=== PATIENT | female | born 1965 | race Caucasian/White ===

== ENCOUNTER → 2018-05-25 10:45 | Outpatient (CLI) | payer MEDICAID, SELFPAY ==
--- NOTE | 2018-05-25 | IMM_PTH ---
PATIENT: ROYER MARCUM LOC: [facility] U#:[id number] AGE/SX: 60/F ROOM: RE05/25/[address]: Dr. Pino Almanzar MD : 1965 BED: DIS: SPEC #: [id number] RECD: 05/27/18 10:53 STATUS: KATY REQ #: [id number] TAWANDA: 05/25/18 00:[address]: Pino Almanzar DEPT: IMMUNOHISTOCHEMISTRY RECD BY: Coby Steel ENTERED: 05/27/18 10:54 SP TYPE: IMMUNO OTHR DR: Dr. Pino Wilburn MD Tissues: B - Right breast, NOS Procedures: CALPONIN-1 (add) CK5-6 (add) CK8 (add) E-CAD (add) HER2 NINOSKA (add) KI-67 (add) P53 (add) AL (add) P40 (add) ER (initial) PHYSICIAN & INSTITUTION [place] [id number] SPECIMEN INFORMATION: Tissue Source: B ? Right breast tissue, 11 o?clock Clinical Info: Right breast masses Specimen Number: [id number] CPT code: 49969, 45275 x6, 65525 x3 METHODOLOGY: Deparaffinized sections of prefer/formalin-fixed tissue or PAP/DQ stained slides are incubated with monoclonal/polyclonal antibodies/oligonucleotide probes. Localization is made via biotin free immunoperoxidase method. Appropriate controls are performed and reacted as expected. Results on target cell population are indicated in the following table: RESULTS: ANTIBODY / CLONE RESULT Block B P53 (DO-7) positive, dim 2% Ki-67 (30-9) positive, rare CK8 (86lerfB65) positive CK5-6 (D5 & 1684) positive Calponin-1 (LT994V) negative P40 (BC28) negative E-Cad (ECH-6) positive ER (clone 6F11) 45%, moderate AL (clone 16/1E2) 0-25%, moderate Her-2Neu (clone CB11) 0-1+ The prognostic test for HER2 is performed on formalin-fixed paraffin embedded tissue. A 3+ (positive) staining pattern is defined as intense, homogeneous, complete, circumferential membranous staining in >10% of contiguous tumor cells. A similar weak (2+) staining pattern is interpreted as equivocal. EMILY follow-up testing is recommended for all equivocal cases. Positivity/negativity for ER/AL is reported if > or < 1% of the tumor cells are immuno- reactive, respectively. The ASCO/CAP criteria is used for scoring. Reference: Journal of Clinical Oncology, 2013; 31:2790-9591 & 2010; 16:7482-7039. Duration of fixation: 7.5 Hrs; Sample Adequate: Yes. These assays have not been validated on decalcified tissues. Results should be interpreted with caution given the likelihood of false negativity on decalcified specimens. These tests were developed and their performance characteristics determined by [facility]. They may not have been cleared or approved by the U.S. Food and Drug Administration. The FDA has determined that such clearance or approval is not necessary. INTERPRETATION: B. Right breast 11 o?clock, biopsy: Fibroadenomatous change. Focal intraductal hyperplasia without atypia. Extensive elastosis. AM:natalee 05/31/18 AM:natalee 06/23/18 Case has been reviewed in consultation with Dr. Montoya who concurs with the above diagnosis. IDC:SJ
--- NOTE | 2018-05-25 | IMM_PTH ---
PATIENT: ROYER MARCUM LOC: [facility] U#:[id number] AGE/SX: 60/F ROOM: RE05/25/[address]: Dr. Pino Almanzar MD : 1965 BED: DIS: SPEC #: [id number] RECD: 05/27/18 10:53 STATUS: KATY REQ #: [id number] TAWANDA: 05/25/18 00:[address]: Pino lAmanzar DEPT: IMMUNOHISTOCHEMISTRY RECD BY: Coby Steel ENTERED: 05/27/18 10:54 SP TYPE: IMMUNO OTHR DR: Dr. Pino Wilburn MD Tissues: B - Right breast, NOS Procedures: CALPONIN-1 (add) CK5-6 (add) CK8 (add) E-CAD (add) HER2 NINOSKA (add) KI-67 (add) P53 (add) OH (add) P40 (add) ER (initial) PHYSICIAN & INSTITUTION [place] [address] SPECIMEN INFORMATION: Tissue Source: B ? Right breast tissue, 11 o?clock Clinical Info: Right breast masses Specimen Number: [id number] CPT code: 48498, 17925 x6, 70497 x3 METHODOLOGY: Deparaffinized sections of prefer/formalin-fixed tissue or PAP/DQ stained slides are incubated with monoclonal/polyclonal antibodies/oligonucleotide probes. Localization is made via biotin free immunoperoxidase method. Appropriate controls are performed and reacted as expected. Results on target cell population are indicated in the following table: RESULTS: ANTIBODY / CLONE RESULT Block B P53 (DO-7) positive, dim 2% Ki-67 (30-9) positive, rare CK8 (82gspnR98) positive CK5-6 (D5 & 1684) positive Calponin-1 (BS700A) negative P40 (BC28) negative E-Cad (ECH-6) positive MORPHOMETRIC ANALYSIS ER (clone 6F11) 45%, moderate OH (clone 16/1E2) 0-25%, moderate Her-2Neu (clone CB11) 0-1+ The prognostic test for HER2 is performed on formalin-fixed paraffin embedded tissue. A 3+ (positive) staining pattern is defined as intense, homogeneous, complete, circumferential membranous staining in >10% of contiguous tumor cells. A similar weak (2+) staining pattern is interpreted as equivocal. EMILY follow-up testing is recommended for all equivocal cases. Positivity/negativity for ER/OH is reported if > or < 1% of the tumor cells are immuno- reactive, respectively. The ASCO/CAP criteria is used for scoring. Reference: Journal of Clinical Oncology, 2013; 31:1789-7929 & 2010; 16:5909-6139. Duration of fixation: 7.5 Hrs; Sample Adequate: Yes. These assays have not been validated on decalcified tissues. Results should be interpreted with caution given the likelihood of false negativity on decalcified specimens. These tests were developed and their performance characteristics determined by [facility]. They may not have been cleared or approved by the U.S. Food and Drug Administration. The FDA has determined that such clearance or approval is not necessary. INTERPRETATION: B. Right breast 11 o?clock, biopsy: Fibroadenomatous change. Focal intraductal hyperplasia without atypia. Extensive elastosis. Positive for estrogen receptors (favorable prognostic indicator). Positive for progesterone receptors (favorable prognostic indicator). Negative for overexpression of AMN9ala. AM:natalee 05/31/18 Case has been reviewed in consultation with Dr. Montoya who concurs with the above diagnosis. IDC:SJ
--- NOTE | 2018-05-25 11:14 | PCM.OPRPT ---
Problem List (1) Abnormal mammogram of right breast Status: Acute Report of Operation Date of Procedure: 05/25/18 Pre-Operative Diagnosis: Vague density upper mid right breast Post-Operative Diagnosis: Not consistently visualized density upper mid right breast Surgery/Procedure Performed:: Aborted attempt at stereotactic needle core right breast biopsy Description of Surgical Findings:: Timeout and informed consent was obtained. 52-year-old female was taken to the stereotactic unit. She was placed prone on the table. The right breast was placed in the cc view. The pre-imaging demonstrates a very vague distortion in the upper mid right breast. Attempts to mimic this on stereotactic imaging was not possible. After several repositioning attempts the procedure was aborted. The patient was instructed that imaging could not be clarified. We will try to expedite an attempt at ultrasound-guided biopsy upper mid right breast Pino Almanzar M.D., F.A.C.S. Type of Anesthesia:: None
--- NOTE | 2018-05-25 11:15 | BRBX_PTH ---
PATIENT: ROYER MARCUM LOC: [facility] U#:[id number] AGE/SX: 60/F ROOM: RE05/25/[address]: Dr. Pino Almanzar MD : 1965 BED: DIS: SPEC #: [id number] RECD: 05/25/18 12:06 STATUS: KATY JOE #: [id number] TAWANDA: 05/25/18 11:[address]: Pino Almanzar DEPT: SURGICAL PATHOLOGY RECD BY: Warren Castorena ENTERED: 05/25/18 12:39 SP TYPE: BREAST BX OTHR DR: Dr. Pino Wilburn MD Tissues: A - Right breast, NOS B - Right breast, NOS Procedures: Surgery Specimen Level IV HEADER OPERATION: Right breast biopsy x2 PRE-OP DIAGNOSIS: Right breast masses TISSUE SUBMITTED: A. Right breast tissue, 10 o?clock, B. Right breast tissue, 11 o?clock ISCHEMIC TIME: <1 minute FIXATION TIME: 7.5 hours MICROSCOPIC DIAGNOSIS A. Right breast mass at 10 o?clock, core biopsy: Benign breast tissue. See comment. B. Right breast mass at 11 o?clock, core biopsy: Fibroadenomatous change. Focal intraductal hyperplasia without atypia. Extensive stromal elastosis. AM:natalee 05/27/18 COMMENT A. The specimen primarily consists of mature adipose tissue and organizing blood clots. Clinical correlation is suggested. B. Immunohistochemistry ([id number]) supports the above diagnosis. Case has been reviewed in consultation with Dr. Montoya who concurs with the above diagnosis. IDC:SJ MICROSCOPIC DESCRIPTION Slides are reviewed. GROSS DESCRIPTION A - Received in fixative is one container labeled with the patient's name and designated right breast at 10 o'clock. The specimen consists of multiple irregular fragments of yellow-valdez soft tissue that in aggregate measure 3 x 1 x 0.1 cm. The specimen is totally submitted in one cassette. B - Received in fixative is one container labeled with the patient's name and designated right breast at 11 o'clock. The specimen consists of multiple irregular fragments of yellow-valdez soft tissue that in aggregate measure 2.5 x 0.5 x 0.1 cm. The specimen is totally submitted in one cassette. / AM:natalee 05/25/18 TC:0 CPT: 87192 x2
--- NOTE | 2018-05-25 11:52 | BI_ITS ---
MAMMOGRAPHY - UNILATERAL DIAGNOSTIC: RIGHT BREAST REASON FOR EXAM: Female, 52 years old. Assessment of postbiopsy clip placement. PERTINENT HISTORY: Ultrasound guided biopsies. TECHNIQUE: Oblique and craniocaudad views of the right breast were obtained. CAD: Full Field Digital Mammography with Computer Added Detection was performed. COMPARISON: Comparison is made with prior outside examination dated April 16, 2018. FINDINGS: Breast Composition: The breasts are heterogeneously dense, which may obscure small masses. 2 tissue markers are seen in the slightly superior retroareolar region of the right breast. No other significant abnormalities are identified. BI/DIAG MAMM W/CAD, UNILAT IMPRESSION: 2 tissue markers are seen in the slightly superior retroareolar region of the right breast. ASSESSMENT CATEGORY: BIRADS Category 2: Benign. A letter regarding these results will be sent to the patient by the facility within 30 days. Approximately 10% of breast cancers are not detected by mammography. A normal mammogram should not delay biopsy of a clinically suspicious abnormality. Electronically Signed: Cali Newton MD at 13:50 EDT Tel [phone], Service support ,
== END ==
PROVIDERS: Family Provider Family Medicine; PCP Family Medicine; Visit Provider Surgery
DX: D24.1 Benign neoplasm of right breast (principal); N60.21 Fibroadenosis of right breast; N60.91 Unspecified benign mammary dysplasia of right breast
CPT/HCPCS: 19081; 77065; 88305; 88341; 88342

== ENCOUNTER → 2018-11-26 09:23 | Outpatient (CLI) | payer SELFPAY ==
--- NOTE | 2018-11-26 09:30 | BI_ITS ---
MAMMOGRAPHY - UNILATERAL DIAGNOSTIC: RIGHT BREAST REASON FOR EXAM: Female, 53 years old. Six-month follow-up examination for right ultrasound-guided breast biopsy. PERTINENT HISTORY: Grandmother with breast cancer. TECHNIQUE: Digital unilateral breast allen (3D mammographic acquisition) in the CC and MLO projections. 2-D mediolateral oblique (MLO) and craniocaudad (CC) views of both breasts were obtained. CAD: Full Field Digital Mammography with Computer Added Detection was performed. COMPARISON: Comparison is made with prior examination dated April 16, 2018 and May 25, 2018. FINDINGS: Breast Composition: The breasts are heterogeneously dense, which may obscure small masses. There are no dominant masses or suspicious calcifications. Once again, 2 tissue markers are seen in the superior slightly lateral retroareolar region of the right breast. No other significant abnormalities are identified. There has been no significant change since the prior study. BI/DIAG MAMM W/CAD, UNILAT IMPRESSION: Stable unilateral diagnostic mammogram. One year follow-up mammogram recommended. (A) ASSESSMENT CATEGORY: BIRADS Category 2: Benign. A letter regarding these results will be sent to the patient by the facility within 30 days. Approximately 10% of breast cancers are not detected by mammography. A normal mammogram should not delay biopsy of a clinically suspicious abnormality. Electronically Signed: Cali Newton MD at 10:38 EST Tel [phone], Service support ,
--- NOTE | 2018-11-26 09:30 | US_ITS ---
STUDY: ULTRASOUND BREAST - RIGHT REASON FOR EXAM: Female, 53 years old. 6 month follow-up examination following a right breast biopsy. TECHNIQUE: Axial and longitudinal images of the RIGHT breast were performed with a high resolution ultrasound transducer. COMPARISON: Comparison is made with prior mammogram done earlier in the day and prior mammogram dated May 25, 2018. FINDINGS: RIGHT Breast: There is a 5 mm x 6 mm x 6 mm hypoechoic nodule at the 10:00 position in the breast at 3 cm from nipple. A tissue clip marker is seen within it. US/Breast Complete Unilateral IMPRESSION: 5 mm x 6 mm x 6 mm hypoechoic nodule at the 10:00 position breast at 3 cm from the nipple. A tissue clip marker is seen within it. ASSESSMENT CATEGORY: BIRADS Category 2: Benign. A letter regarding these results will be sent to the patient by the facility within 30 days. Electronically Signed: Cali Newton MD at 12:28 EST Tel [phone], Service support ,
== END ==
PROVIDERS: Family Provider Family Medicine; PCP Family Medicine; Referring Provider Surgery; Visit Provider Surgery
DX: N63.12 Unspecified lump in the right breast, upper inner quadrant (principal)
CPT/HCPCS: 76641; 77061; 77065; G0279

== ENCOUNTER → 2019-05-23 | Outpatient (CLI) | payer SELFPAY ==
--- NOTE | 2019-05-23 15:57 | BI_ITS ---
MAMMOGRAPHY - BILATERAL SCREENING REASON FOR EXAM: Female, 53 years old. Routine annual screening examination. PERTINENT HISTORY: Grandmother with breast cancer. TECHNIQUE: Digital bilateral breast teresa (3D mammographic acquisition) in the CC and MLO projections. 2-D mediolateral oblique (MLO) and craniocaudad (CC) views of both breasts were obtained. CAD: Full Field Digital Mammography with Computer Added Detection was performed. COMPARISON: Comparison is made with prior outside examination dated April 16, 2018 and May 25, 2018. Comparison is also made with by ultrasound the right breast dated November 26, 2018. FINDINGS: Breast Composition: The breasts are extremely dense, which lowers the sensitivity of mammography. There are no dominant masses or suspicious calcifications. 2 tissue markers are seen in the slightly superior lateral retroareolar region of the right breast. No other significant abnormalities are identified. BI/SCREEN MAMM (CAD) W/TERESA BILAT IMPRESSION: Stable bilateral screening mammogram. Yearly follow-up mammogram recommended. (A) ASSESSMENT CATEGORY: BIRADS Category 2: Benign. A letter regarding these results will be sent to the patient by the facility within 30 days. Approximately 10% of breast cancers are not detected by mammography. A normal mammogram should not delay biopsy of a clinically suspicious abnormality. [id number] Electronically Signed: Cali Newton, at 9:11 EDT , Service support ,
== END | disposition home or self-care (01) ==
PROVIDERS: Family Provider Family Medicine; PCP Family Medicine; Referring Provider Surgery; Visit Provider Surgery
DX: Z12.31 Encounter for screening mammogram for malignant neoplasm of breast (principal); Z98.890 Other specified postprocedural states; R92.8 Other abnormal and inconclusive findings on diagnostic imaging of breast
CPT/HCPCS: 77063; 77067

== ENCOUNTER → 2020-05-24 14:37 | Outpatient (CLI) | payer SELFPAY ==
[2019-06-13 13:29] VITALS: BMI 24.1
--- NOTE | 2020-05-24 14:39 | BI_ITS ---
MAMMOGRAPHY - BILATERAL SCREENING REASON FOR EXAM: Female, 54 years old. Routine annual screening examination. PERTINENT HISTORY: Grandmother with breast cancer. History of prior right ultrasound-guided breast biopsy. TECHNIQUE: Digital bilateral breast teresa (3D mammographic acquisition) in the CC and MLO projections. 2-D mediolateral oblique (MLO) and craniocaudad (CC) views of both breasts were obtained. CAD: Full Field Digital Mammography with Computer Added Detection was performed. COMPARISON: Comparison is made with prior study dated May 23, 2019 and November 26, 2018. FINDINGS: Breast Composition: The breasts are extremely dense, which lowers the sensitivity of mammography. There are no dominant masses or suspicious calcifications. Once again, 2 tissue markers are seen in the slightly superior lateral retroareolar region of the right breast. No other significant abnormalities are identified. There has been no significant change since the prior study. BI/SCREEN MAMM (CAD) W/TERESA BILAT IMPRESSION: Stable bilateral screening mammogram. Yearly follow-up mammogram recommended. (A) ASSESSMENT CATEGORY: BIRADS Category 2: Benign. A letter regarding these results will be sent to the patient by the facility within 30 days. Approximately 10% of breast cancers are not detected by mammography. A normal mammogram should not delay biopsy of a clinically suspicious abnormality. [id number] Electronically Signed: Cali Newton, at 8:52 EDT , Service support ,
== END ==
PROVIDERS: PCP Family Medicine; Referring Provider Surgery; Visit Provider Surgery
DX: Z12.31 Encounter for screening mammogram for malignant neoplasm of breast (principal)
CPT/HCPCS: 77063; 77067

== ENCOUNTER → 2021-06-11 07:25 | Outpatient (CLI) | payer SELFPAY ==
[2019-06-13 13:29] VITALS: BMI 24.1
--- NOTE | 2021-06-11 07:30 | BI_ITS ---
MAMMOGRAPHY - BILATERAL SCREENING REASON FOR EXAM: Female, 55 years old. Routine annual screening examination. PERTINENT HISTORY: Grandmother with breast cancer. History of prior right ultrasound-guided breast biopsy. TECHNIQUE: Digital bilateral breast teresa (3D mammographic acquisition) in the CC and MLO projections. 2-D mediolateral oblique (MLO) and craniocaudad (CC) views of both breasts were obtained. CAD: Full Field Digital Mammography with Computer Added Detection was performed. COMPARISON: Comparison is made with prior study dated 05/24/2020 and 05/23/2019. FINDINGS: Breast Composition: The breasts are extremely dense, which lowers the sensitivity of mammography. There are no dominant masses or suspicious calcifications. Once again, 2 tissue markers are seen in the slightly upper retroareolar region of the right breast. No other significant abnormalities are identified. There has been no significant change since the prior study. BI/SCRN MAMM (CAD)W/TERESA BILAT IMPRESSION: Stable bilateral screening mammogram. Yearly follow-up mammogram recommended. (A) ASSESSMENT CATEGORY: BIRADS Category 2: Benign. A letter regarding these results will be sent to the patient by the facility within 30 days. Approximately 10% of breast cancers are not detected by mammography. A normal mammogram should not delay biopsy of a clinically suspicious abnormality. [id number] Electronically Signed: Cali Newton MD at 8:40 EDT , Service support ,
== END ==
PROVIDERS: PCP Family Medicine; Referring Provider Obstetrics & Gynecology; Visit Provider Obstetrics & Gynecology
DX: Z12.31 Encounter for screening mammogram for malignant neoplasm of breast (principal)
CPT/HCPCS: 77063; 77067

== ENCOUNTER → 2021-10-23 08:52 | Outpatient (CLI) | payer SELFPAY ==
--- NOTE | 2021-10-23 08:55 | US_ITS ---
STUDY: ULTRASOUND BREAST - LEFT REASON FOR EXAM: Female, 56 years old. Palpable lump left breast. TECHNIQUE: Axial and longitudinal images of the LEFT breast were performed with a high resolution ultrasound transducer. # OF IMAGES: 10 COMPARISON: Comparison is made with prior mammogram done earlier today. FINDINGS: LEFT Breast: The mammographic abnormality corresponds to a 2 cm x 2.1 cm x 1.1 cm cyst at the 2 o''clock position of the breast at 3 cm from nipple. US/Breast Limited Unilateral IMPRESSION: The mammographic and amount he corresponds to a 2 cm x 2.1 cm x 1.1 cm cyst at the 2 o''clock position of the breast at 3 cm from the nipple. ASSESSMENT CATEGORY: BIRADS Category 2: Benign. A letter regarding these results will be sent to the patient by the facility within 30 days. Electronically Signed: Cali Newton MD at 10:29 EST , Service support ,
--- NOTE | 2021-10-23 08:55 | BI_ITS ---
MAMMOGRAPHY - UNILATERAL DIAGNOSTIC: LEFT BREAST REASON FOR EXAM: Female, 56 years old. One-week history of left breast lump. PERTINENT HISTORY: Grandmother with breast cancer. TECHNIQUE: Digital unilateral breast allen (3D mammographic acquisition) in the CC and MLO projections. 2-D mediolateral oblique (MLO) and craniocaudad (CC) views of both breasts were obtained. CAD: Full Field Digital Mammography with Computer Added Detection was performed. COMPARISON: Comparison is made with prior study dated 06/11/2021 and 05/24/2020. FINDINGS: Breast Composition: The breasts are extremely dense, which lowers the sensitivity of mammography. There now is evidence of a 1.8 cm x 1.8 cm well-defined nodule in the deep upper lateral aspect of the left breast. Correlation with ultrasound is recommended. No other significant abnormalities are identified. BI/DIAG MAMM W/CAD, UNILAT IMPRESSION: 1.8 cm x 1.8 cm well-defined nodule in the deep upper lateral aspect of the left breast. Correlation with ultrasound is recommended. ASSESSMENT CATEGORY: BIRADS Category 0: Incomplete. Need additional imaging evaluation. A letter regarding these results will be sent to the patient by the facility within 30 days. Approximately 10% of breast cancers are not detected by mammography. A normal mammogram should not delay biopsy of a clinically suspicious abnormality. Electronically Signed: Cali Newton MD at 9:55 EST , Service support ,
== END ==
PROVIDERS: PCP Family Medicine; Referring Provider Obstetrics & Gynecology; Visit Provider Obstetrics & Gynecology
DX: N63.20 Unspecified lump in the left breast, unspecified quadrant (principal)
CPT/HCPCS: 76642; 77061; 77065; G0279

== ENCOUNTER 2022-10-28 17:15 | Outpatient (CLI) | payer OTHER, SELFPAY ==
--- NOTE | 2022-10-28 16:28 | BI_ITS ---
MAMMOGRAPHY - BILATERAL SCREENING REASON FOR EXAM: Female, 57 years old. Routine annual screening examination. PERTINENT HISTORY: Grandmother with breast cancer. TECHNIQUE: Digital bilateral breast teresa (3D mammographic acquisition) in the CC and MLO projections. 2-D mediolateral oblique (MLO) and craniocaudad (CC) views of both breasts were obtained. CAD: Full Field Digital Mammography with Computer Added Detection was performed. COMPARISON: Comparison is made with prior examination dated 06/11/2021 and 05/24/2020 FINDINGS: Breast Composition: The breasts are extremely dense, which lowers the sensitivity of mammography. There is a 2.4 cm x 2.4 cm well-defined nodule in the slightly upper deep portion of the left breast. This also evidence of a 9.2 mm x 11.4 mm well-defined nodule in the upper lateral portion of the left breast. Correlation with ultrasound is recommended. No other significant abnormalities are identified. BI/SCRN MAMM (CAD)W/TERESA BILAT IMPRESSION: There are 2 well-defined nodular densities in the left breast as described. Correlation with ultrasound is recommended. ASSESSMENT CATEGORY: BIRADS Category 0: Incomplete. Need additional imaging evaluation. A letter regarding these results will be sent to the patient by the facility within 30 days. Approximately 10% of breast cancers are not detected by mammography. A normal mammogram should not delay biopsy of a clinically suspicious abnormality. [id number] Electronically Signed: Cali Newton MD at 9:07 EST ,
== END 2022-10-28 23:59 | disposition home or self-care (01) ==
LOC: OPBI 10-29 07:16
PROVIDERS: PCP Family Medicine; Visit Provider Student in an Organized Health Care Education/Training Program
DX: Z12.31 Encounter for screening mammogram for malignant neoplasm of breast (principal); N63.20 Unspecified lump in the left breast, unspecified quadrant; Z80.3 Family history of malignant neoplasm of breast
CPT/HCPCS: 77063; 77067

== ENCOUNTER → 2022-10-30 | Outpatient (CLI) | payer OTHER, SELFPAY ==
--- NOTE | 2022-10-30 08:08 | US_ITS ---
STUDY: ULTRASOUND BREAST - LEFT REASON FOR EXAM: Female, 57 years old. Abnormal screening mammogram. TECHNIQUE: Axial and longitudinal images of the LEFT breast were performed with a high resolution ultrasound transducer. # OF IMAGES: 14 COMPARISON: Comparison is made with prior mammogram dated 10/28/2022 and prior sonogram of the left breast dated 10/23/2021. FINDINGS: LEFT Breast: There is a 2.1 cm x 2.5 cm x 1.5 cm cyst at the 2 o''clock position of the breast at 3 cm from the nipple. A second cyst measuring 1.1 cm x 1.1 cm x 0.8 cm is seen at the 2 o''clock position of the breast at 4 cm from nipple. There is a 1.3 cm x 1.1 cm x 0.7 cm hypoechoic slightly lobular nodular density at the 1 o''clock position of the breast at 6 cm from the nipple. Biopsy recommended. US/Breast Limited Unilateral IMPRESSION: Left breast cysts. 1.3 cm x 1.1 cm x 0.7 cm hypoechoic solid nodule that is slightly lobulated at the 1 o''clock position of the breast at 6 cm from the nipple. Biopsy recommended. ASSESSMENT CATEGORY: BIRADS Category 4: Suspicious - Biopsy Should Be Considered. A letter regarding these results will be sent to the patient by the facility within 30 days. Electronically Signed: Cali Newton MD at 8:54 EST ,
== END | disposition home or self-care (01) ==
LOC: OPUS 08:06
PROVIDERS: PCP Family Medicine; Referring Provider Student in an Organized Health Care Education/Training Program; Visit Provider Student in an Organized Health Care Education/Training Program
DX: R92.8 Other abnormal and inconclusive findings on diagnostic imaging of breast (principal); N63.21 Unspecified lump in the left breast, upper outer quadrant
CPT/HCPCS: 76642

== ENCOUNTER → 2022-11-05 | Outpatient (CLI) | payer OTHER, SELFPAY ==
--- NOTE | 2022-11-05 15:35 | BRBX_PTH ---
PATIENT: ROYER MARCUM LOC: [facility] #:[id number] AGE/SX: 57/F ROOM: RE11/05/[address]: Dr. Pino Almanzar MD : 1965 BED: DIS: 11/05/2022 SPEC #: [id number] RECD: 11/05/22 16:47 STATUS: KATY REBlayne #: [id number] TAWANDA: 11/05/22 15:[address]: Pino Almanzar DEPT: SURGICAL PATHOLOGY RECD BY: Karley Quiros ENTERED: 11/06/22 08:46 SP TYPE: BREAST BX OTHR DR: Dr. Rico Rodriguez, DO Tissues: Left breast, NOS Procedures: Surgery Specimen Level IV HEADER OPERATION: Left breast biopsy PRE-OP DIAGNOSIS: Left breast mass TISSUE SUBMITTED: Left breast nodule biopsy MICROSCOPIC DIAGNOSIS Left breast mass, needle core biopsy: Consistent with fibroadenoma. AM:natalee 11/07/2022 MICROSCOPIC DESCRIPTION Slides are reviewed. GROSS DESCRIPTION Received in fixative is one container labeled with the patient's name and designated left breast. The specimen consists of multiple elongated fragments of valdez-yellow fibroadipose tissue that in aggregate measure 2.5 x 0.2 x 0.1 cm. The entire specimen is submitted in one cassette. / SJ:rg 11/06/2022 TC:5 [facility]: [id number]
== END | disposition home or self-care (01) ==
LOC: LABSPEC 16:57
PROVIDERS: PCP Family Medicine; Visit Provider Surgery
DX: N63.20 Unspecified lump in the left breast, unspecified quadrant (principal)
CPT/HCPCS: 88305

== ENCOUNTER → 2023-10-30 | Outpatient (CLI) | payer OTHER, SELFPAY ==
--- NOTE | 2023-10-30 12:32 | BI_ITS ---
MAMMOGRAPHY - BILATERAL SCREENING REASON FOR EXAM: Female, 58 years old. Routine annual screening examination. PERTINENT HISTORY: Grandmother with breast cancer. Prior left ultrasound-guided breast biopsy. Prior right breast biopsy as well. TECHNIQUE: Digital bilateral breast teresa (3D mammographic acquisition) in the CC and MLO projections. 2-D mediolateral oblique (MLO) and craniocaudad (CC) views of both breasts were obtained. CAD: Full Field Digital Mammography with Computer Added Detection was performed. COMPARISON: Comparison is made with prior study dated October 28, 2022. FINDINGS: Breast Composition: The breasts are extremely dense, which lowers the sensitivity of mammography. There are no dominant masses or suspicious calcifications. 2 tissue markers once again seen in the superior retroareolar region of the right breast. A tissue clip marker is also seen in the upper deep outer aspect of the left breast. Stable 2.5 cm x 2 cm well-defined nodule in the deep upper lateral aspect of the right breast. No other significant abnormalities are identified. There has been no significant change since the prior study. BI/SCRN MAMM (CAD)W/TERESA BILAT IMPRESSION: Stable bilateral screening mammogram. Yearly follow-up mammogram recommended. (A) ASSESSMENT CATEGORY: BIRADS Category 2: Benign. A letter regarding these results will be sent to the patient by the facility within 30 days. Approximately 10% of breast cancers are not detected by mammography. A normal mammogram should not delay biopsy of a clinically suspicious abnormality. [id number] Electronically Signed: Cali Newton MD at 13:48 EST ,
== END | disposition home or self-care (01) ==
LOC: OPBI 12:30
PROVIDERS: PCP Family Medicine; Referring Provider Surgery; Visit Provider Surgery
DX: Z12.31 Encounter for screening mammogram for malignant neoplasm of breast (principal); Z80.3 Family history of malignant neoplasm of breast
CPT/HCPCS: 77063; 77067

== ENCOUNTER → 2023-12-28 | Outpatient (CLI) | payer OTHER, SELFPAY | END | disposition home or self-care (01) | LOC: LABSPEC 13:51 | PROVIDERS: PCP Family Medicine; Referring Provider Obstetrics & Gynecology; Visit Provider Obstetrics & Gynecology | DX: R32 Unspecified urinary incontinence (principal) | CPT/HCPCS: 87086 ==

== ENCOUNTER → 2024-11-02 | Outpatient (CLI) | payer OTHER, SELFPAY ==
--- NOTE | 2024-11-02 07:31 | BI_ITS ---
MAMMOGRAPHY - BILATERAL SCREENING REASON FOR EXAM: Female, 59 years old. Routine annual screening examination. PERTINENT HISTORY: Grandmother with breast cancer. History of prior left ultrasound-guided breast biopsies. TECHNIQUE: Digital bilateral breast teresa (3D mammographic acquisition) in the CC and MLO projections. 2-D mediolateral oblique (MLO) and craniocaudad (CC) views of both breasts were obtained. CAD: Full Field Digital Mammography with Computer Added Detection was performed. COMPARISON: Comparison is made with prior study dated October 30, 2023 and October 28, 2022. FINDINGS: Breast Composition: The breasts are extremely dense, which lowers the sensitivity of mammography. Stable 2.4 cm x 2.2 cm well-defined nodule in the slightly upper deep portion of the left breast. Stable 1 cm nodule in the upper lateral portion of left breast as well. A tissue clip marker is once again seen in the deep upper lateral portion of the left breast as well as 2 adjacent tissue markers in the anterior upper lateral aspect of the right breast. No other significant abnormalities are identified. There has been no significant change since the prior study. BI/SCRN MAMM (CAD)W/TERESA BILAT IMPRESSION: Stable bilateral screening mammogram. Yearly follow-up mammogram recommended. (A) ASSESSMENT CATEGORY: BIRADS Category 2: Benign. A letter regarding these results will be sent to the patient by the facility within 30 days. Approximately 10% of breast cancers are not detected by mammography. A normal mammogram should not delay biopsy of a clinically suspicious abnormality. [id number] Electronically Signed: Cali Newton MD at 9:47 EST ,
== END | disposition home or self-care (01) ==
LOC: OPBI 07:31
PROVIDERS: PCP Family Medicine; Referring Provider Obstetrics & Gynecology; Visit Provider Obstetrics & Gynecology
DX: Z12.31 Encounter for screening mammogram for malignant neoplasm of breast (principal); Z80.3 Family history of malignant neoplasm of breast
CPT/HCPCS: 77063; 77067

== ENCOUNTER → 2024-12-31 | Outpatient (CLI) | payer OTHER, SELFPAY ==
[2024-12-31 09:20] LABS: Absolute Neutrophil Count 1.9 X10^3/uL (2.0-7.7); Basophil# 0.03 X10^3/uL; Basophil% 0.7 % (0-1); Eosinophil# 0.09 X10^3/uL; Eosinophils% 2.2 % (0-5); Hematocrit 40.9 % (37-47); Hemoglobin 13.2 g/dL (12.0-15.0); Lymphocyte % 41.4 % (19-41); Mean Corp Hgb Conc 32.3 g/dL (32-36); Mean Corpuscular Hgb 28.6 pg (27.0-32.0); Mean Corpuscular Volume 88.5 fL (81-99); Mean Platelet Vol. 8.9 fl (6.2-12.0); Monocyte# 0.37 X10^3/uL; NRBC Flagged by Analyzer 0 % (0-5); Neutrophil # 1.91 X10^3/uL (2.7-7.7); Neutrophil % 46.5 % (47-70); Platelet Count 245 K/mm3 (150-450); RBC Distribution Width CV 13.2 % (11.6-14.6); RBC Distribution Width SD 42.8 fl (35.1-43.9); Red Blood Count 4.62 M/mm3 (4.2-5.4); White Blood Count 4.1 K/mm3 (4.4-11.0)
[2024-12-31 09:59] LABS: ALB/GLOB Ratio 1.2 RATIO (0.9-2.4); AST(SGOT) 17 U/L (15-37); Alanine Aminotransfer ALT/SGPT 24 U/L (13-56); Albumin, Serum 3.8 g/dL (3.2-5.0); Alkaline Phosphatase 56 U/L (45-117); Anion Gap 4 (5-15); BUN 17 mg/dL (7-18); BUN/Creat Ratio 18.6 RATIO (10-20); Calcium,Total 9.5 mg/dL (8.5-10.1); Chloride 107 mmol/L (98-107); Cholesterol 192 mg/dL (200); Creatinine, Serum 0.91 mg/dL (0.55-1.02); EST Glomerular Filtration Rate 67 mL/min (>60); Est Glom Filt Rate - Afr Amer 81 mL/min (>60); Globulin 3.2 g/dL (2.2-4.2); Glucose 104 mg/dL (74-106); High Density Lipoprotein 101 mg/dL; Potassium 5.1 mmol/L (3.5-5.1); Sodium Level 139 mmol/L (136-145); Triglycerides 45 mg/dL; Very Low Density Lipoprotein 9 mg/dL (5-40)
[2025-01-01 18:52] LABS: Hemoglobin A1c 5.5 % (3.8-5.6)
[2025-01-03 14:07] LABS: Vitamin D 1,25-Dihydroxy 44.1 pg/mL (24.8-81.5)
== END | disposition home or self-care (01) ==
LOC: LAB 08:27
PROVIDERS: PCP Family Medicine; Referring Provider Obstetrics & Gynecology; Visit Provider Obstetrics & Gynecology
DX: Z00.00 Encounter for general adult medical examination without abnormal findings (principal); Z13.1 Encounter for screening for diabetes mellitus; Z13.21 Encounter for screening for nutritional disorder; Z13.220 Encounter for screening for lipoid disorders; Z13.29 Encounter for screening for other suspected endocrine disorder
CPT/HCPCS: 36415; 80053; 80061; 82652; 83036; 84443; 85025

== ENCOUNTER → 2025-04-26 | Outpatient (CLI) | payer OTHER, SELFPAY ==
--- NOTE | 2025-04-26 13:53 | US_ITS ---
EXAM: DIAG MAMM W/CAD, UNILAT; LT BRST UNILAT TERESA ADD ON; BREAST LIMITED UNILATERAL 04/26/2025 CLINICAL HISTORY: 59-year-old female presents with palpable concern in the left breast. Family history of breast cancer in maternal great grandmother in her 60s. TECHNIQUE: Left diagnostic digital breast tomosynthesis with 2D and 3D images. Computer aided detection. Also, targeted left breast ultrasound was performed. COMPARISON: Mammogram 11/02/2024, 10/30/2023, 10/28/2022. Ultrasound 10/30/2022 FINDINGS: MAMMOGRAM: TISSUE DENSITY: The breast tissue is heterogenously dense, which may obscure small masses. The mammogram demonstrates that the patient has dense breasts. Supplemental screening with whole breast ultrasound or MRI may be considered for further evaluation. Left breast: There is a triangle skin marker indicating the area of palpable concern. Underlying the skin marker in the central outer left breast is a circumscribed mass. ULTRASOUND: Ultrasound performed of the area of palpable concern in the left breast in the upper-outer quadrant demonstrates a cyst at 3 o'clock 3 cm from the nipple measuring 2.1 x 1.8 x 1.4 cm. Also, incidentally noted is the circumscribed hypoechoic mass with associated biopsy marker clip at 230-3 o'clock 5 cm from the nipple measuring 1.1 x 1.1 x 0.6 cm. This mass is not significantly changed when compared to prior and had corresponding benign pathology of fibroadenoma. US/Breast Limited Unilateral IMPRESSION: 1. The patient's area of palpable concern in the left breast correlates to a b enign cyst. OVERALL FINAL ASSESSMENT: BIRADS 2 BENIGN FINDING. RECOMMENDATION: Return to annual screening mammography. A letter with findings and recommendations will be mailed to the patient. Reading Location: [id number]
--- NOTE | 2025-04-26 14:48 | BI_ITS ---
EXAM: DIAG MAMM W/CAD, UNILAT; LT BRST UNILAT TERESA ADD ON; BREAST LIMITED UNILATERAL 04/26/2025 CLINICAL HISTORY: 59-year-old female presents with palpable concern in the left breast. Family history of breast cancer in maternal great grandmother in her 60s. TECHNIQUE: Left diagnostic digital breast tomosynthesis with 2D and 3D images. Computer aided detection. Also, targeted left breast ultrasound was performed. COMPARISON: Mammogram 11/02/2024, 10/30/2023, 10/28/2022. Ultrasound 10/30/2022 FINDINGS: MAMMOGRAM: TISSUE DENSITY: The breast tissue is heterogenously dense, which may obscure small masses. The mammogram demonstrates that the patient has dense breasts. Supplemental screening with whole breast ultrasound or MRI may be considered for further evaluation. Left breast: There is a triangle skin marker indicating the area of palpable concern. Underlying the skin marker in the central outer left breast is a circumscribed mass. ULTRASOUND: Ultrasound performed of the area of palpable concern in the left breast in the upper-outer quadrant demonstrates a cyst at 3 o'clock 3 cm from the nipple measuring 2.1 x 1.8 x 1.4 cm. Also, incidentally noted is the circumscribed hypoechoic mass with associated biopsy marker clip at 230-3 o'clock 5 cm from the nipple measuring 1.1 x 1.1 x 0.6 cm. This mass is not significantly changed when compared to prior and had corresponding benign pathology of fibroadenoma. BI/Lt Brst Unilat Teresa Add On IMPRESSION: 1. The patient's area of palpable concern in the left breast correlates to a b enign cyst. OVERALL FINAL ASSESSMENT: BIRADS 2 BENIGN FINDING. RECOMMENDATION: Return to annual screening mammography. A letter with findings and recommendations will be mailed to the patient. Reading Location: [id number]
== END | disposition home or self-care (01) ==
PROVIDERS: PCP Family Medicine; Referring Provider Obstetrics & Gynecology; Visit Provider Obstetrics & Gynecology
DX: R92.8 Other abnormal and inconclusive findings on diagnostic imaging of breast (principal); N60.02 Solitary cyst of left breast
CPT/HCPCS: 76642; 77061; 77065; G0279